=== PATIENT | female | born 1965 | race Caucasian/White ===

== ENCOUNTER 2025-01-31 09:52 | Outpatient (AMB) | payer OTHER, SELFPAY ==
--- NOTE | 2025-01-31 09:54 | MHC.OFFVIS ---
Intake Visit Reasons: 1 year fu Allergies No Known Allergies Allergy (Verified 01/31/25 09:58) Medication List - Last Reconciled 01/31/25 by Hilda Alegria CNP losartan 50 mg PO DAILY oxcarbazepine 600 mg (2 x 300 mg) PO BEDTIME 90 days HPI Comments Details: 59-year-old woman with generalized seizure disorder starting at age 33 when she had a generalized seizure after drinking alcohol in the middle of night. EEG suggested generalized seizure disorder. She had another similar event a few months later. Many years later, she tried to stop the medicine when she had another spell. She was doing okay. She was taking oxcarbazepine. No medication side effects. No spells. She was waking a few times during the night, but was able to fall back to sleep. Mood was okay. [facility] Social History (Updated 01/31/25 @ 09:55 by Hilda Alegria CNP) Alcohol intake: current Alcohol intake frequency: a few times a week Review of Systems Const Denies chills, Denies daytime sleepiness, Denies difficulty sleeping, Denies fatigue, Denies fever(s), Denies frequent falls, Denies headache(s), Denies increased appetite, Denies poor appetite, Denies snoring, Denies weakness, Denies weight gain and Denies weight loss Eyes Denies loss of vision ENT Denies vertigo, Denies dizziness and Denies headache(s) Card Denies chest pain at rest, Denies chest pain with activity, Denies syncope, Denies leg edema and Denies palpitations Resp Denies snoring GI Denies constipation, Denies heartburn, Denies diarrhea and Denies nausea Denies urinary frequency, Denies urinary incontinence and Denies urinary urgency Musc Denies abnormal gait, Denies numbness and Denies tingling Skin/Breast Denies dry skin and Denies rash Neuro Denies abnormal gait, Denies vertigo, Denies dizziness, Denies syncope, Denies frequent falls, Denies headache(s), Denies lack of coordination, Denies loss of vision, Denies memory loss, Denies numbness, Denies restless legs, Denies seizure-like activity, Denies tingling, Denies paresthesias, Denies tremor(s) and Denies weakness Psych Denies anxiety, Denies depression, Denies auditory hallucinations, Denies memory loss, Denies visual hallucinations and Denies suicidal ideation Endo Denies fatigue and Denies palpitations Physical Exam Const Other: General Appearance:? normal, in no acute distress. Skin:? no rashes, no significant birthmarks. Heart:? S1, S2 normal, no murmurs. Lungs:? clear anteriorly and posteriorly. Extremities:? no edema. Psych:? alert, oriented, cognitive function intact, cooperative with exam. Neuro Other: Mental Status:?Normal attention, orientation, memory and affect.? Cranial Nerves:?Pupils are equal, round and reactive to light. External occular muscles are intact. Visual villeda are full. Face is symmetrical. Facial sensations are normal. Tongue is midline. Palate elevates symmetrically. Shoulder shrugging is normal. Hearing to bedside conversation is normal. Coordination:?No ataxia,?no titubation.? Gait Exam: Within normal limits. Extrapyramidal System:?No tremor, rigidity with normal facial expressions.? Pronator Drift:?Not present.? Involuntary Movements:?No tremors seen.? Speech:?Normal.? Results Reviewed Results Reviewed: MRI brain at [facility] in 1998 WO: [place] [facility] [place] focal bilateral temporal sharp waves Assessment & Plan Assessment & Plan (1) Temporal lobe epilepsy: Code(s): G40.109 - Localization-related (focal) (partial) symptomatic epilepsy and epileptic syndromes with simple partial seizures, not intractable, without status epilepticus Category: Medical Plan: Continue oxcarbazepine 300mg 2 tablets at bedtime. (2) Complex partial seizure: Code(s): G40.209 - Localization-related (focal) (partial) symptomatic epilepsy and epileptic syndromes with complex partial seizures, not intractable, without status epilepticus Category: Medical (3) Generalized seizure disorder: Code(s): G40.309 - Generalized idiopathic epilepsy and epileptic syndromes, not intractable, without status epilepticus Category: Medical Plan . Coding Level of Care Code Est Pt Level 3 (55873) Diagnoses Temporal lobe epilepsy G40.109 Complex partial seizure G40.209 Generalized seizure disorder G40.309
== END 2025-01-31 10:02 | disposition home or self-care (01) ==
LOC: HO.HSM 09:53
PROVIDERS: PCP Internal Medicine; Referring Provider Internal Medicine; Visit Provider Registered Nurse
DX: G40.109 Localization-related (focal) (partial) symptomatic epilepsy and epileptic syndromes with simple partial seizures, not intractable, without status epilepticus (principal); G40.209 Localization-related (focal) (partial) symptomatic epilepsy and epileptic syndromes with complex partial seizures, not intractable, without status epilepticus; G40.309 Generalized idiopathic epilepsy and epileptic syndromes, not intractable, without status epilepticus
CPT/HCPCS: 99213